=== PATIENT | male | born 1985 | race American Indian/Alaskan Native ===

== ENCOUNTER 2019-12-12 09:58 | Emergency (ER) | payer SELFPAY ==
[2019-12-12 10:11] VITALS: BP 133/80
--- NOTE | 2019-12-12 13:05 | Emergency Department Report ---
Chief Complaint: Chest Pain Stated Complaint: FATIGUE/COLD SWEAT/MINOR CP Time Seen by Provider: 12/12/19 12:04 - HPI History of Present Illness: This is a 34-year-old male with no prior medical history who takes no medication who presents here today stating that he is worried because he has been getting cold sweats usually at night for the past 10 years. Patient states that is been going on for 10 years and he is unsure why patient states he read about it and read that it could be serious or could be nothing. Patient also states that he gets tired on and off and also complains of a minor chest ache that happened in October when his grandmother passed. Patient states he has not had chest pain since then. Patient states he is just worried because of the cold sweats and him being tired. He denies fever/chills/nausea vomiting abdominal pain shortness of breath, chest pain, diarrhea. Patient does note that he states he try to go to clinic but could not get into the clinic so he came here. - ROS Review of Systems: As noted in HPI - Exam Vital Signs: Vital Signs 12/12/19 10:07 Temperature 98.5 F Pulse Rate 73 Respiratory 18 Rate Blood Pressure 133/80 O2 Sat by Pulse 98 Oximetry Physical Exam: GENERAL: Alert and oriented x3, no apparent distress, Normal Gait, atraumatic. HEAD: Head is normocephalic and a-traumatic. LUNGS: Symetrical with respiration, No wheezing, no rales or crackles, CTAB. HEART: S1, S2 present, regular rate and rhythm without murmur, no rubs, no gallops. Non tender to palpation SKIN: Warm and dry, No lesions, No ulceration or induration present. MSE screening note: Focused history and physical exam performed. Due to findings the following was ordered: ED Medical Decision Making - EKG Data EKG shows normal: sinus rhythm Rate: normal - EKG Data Interpretation: no acute changes - Medical Decision Making This 34-year-old male who presents to the ED for well worried visit. Reassured patient that most times night sweats may be an hormonal change issue. EKG was performed and EKG was normal. I discussed with patient he needs to see her primary care physician and referrals will be given today so he may follow-up and have testing or evaluation and screening done. Encouraged patient to follow-up with her ice cream scooper as well for baseline testing. Patient does understand he is in no acute distress,he is speaking in clear sentences, has no neurological deficit. Patient states that he knows that he needs a primary care doctor. Referrals given ED Disposition for MSE Clinical Impression: Physically well but worried Disposition: MED SCREENING EXAM-LEFT Is pt being admited?: No Does the pt Need Aspirin: No Condition: Stable Instructions: Costochondritis (ED), Fatigue (ED) Additional Instructions: Make sure to follow up with the primary care physician as discussed. If you have any worsening symptoms or develop new symptoms please return to ED immediately. Referrals: [facility] [Provider Group] - 3-5 Days [facility] [Outside] - 3-5 Days [facility] [Outside] - 3-5 Days [facility] [Outside] - 3-5 Days [facility] [Outside] - 3-5 Days PETER AMOR MD [Staff Physician] - 3-5 Days DIAMOND PEREZ MD [Primary Care Provider] - 3-5 Days Forms: Work/School Release Form(ED) Time of Disposition: 13:08
== END 2019-12-12 13:53 | disposition left against medical advice (07) ==
LOC: ED 09:58
DX: R07.89 Other chest pain (principal); Z71.1 Person with feared health complaint in whom no diagnosis is made
CPT/HCPCS: 93005; 99281